=== PATIENT | female | born 1995 | race Caucasian/White ===

== ENCOUNTER 2017-04-28 11:33 | Emergency (ER) | payer OTHER ==
[~2017-04-28] VITALS: Ht 162.6 cm; Wt 58.3 kg
[~2017-04-28 11:33] MED LIST: NAPROSYN500 MG PO; NORCO 5/3251 TABLET PO; SPRINTEC1 EACH PO; ZOFRAN ODT4 MG PO
[2017-04-28 14:29] LABS: ADD MIUA? NO; BILIRUBIN NEGATIVE; BLOOD NEGATIVE; COLOR STRAW ((YELLOW)); GLUCOSE (STRIP) NEGATIVE; KETONES NEGATIVE; LEUKOCYTES NEGATIVE; NITRITE NEGATIVE; PROTEIN (STRIP) NEGATIVE; SPECIFIC GRAVITY 1.008 (1.000-1.030); UROBILINOGEN 0.2 MG/DL (0.2-1.0)
[2017-04-28 14:30] LABS: INTERNAL CONTROL VALID? YES
[2017-04-28] MEDS ORDERED: ZOFRAN ODT4 MG PO (14:48)
[2017-04-28] MEDS ORDERED: PHENERGAN-CODE120 ML PO (14:48)
[2017-04-28 15:16] VITALS: BP 117/84
== END 2017-04-28 15:17 | disposition home or self-care (01) ==
LOC: EME 11:33
PROVIDERS: Nurse Practitioner Family
DX: J32.9 Chronic sinusitis, unspecified (principal); R11.2 Nausea with vomiting, unspecified; J02.9 Acute pharyngitis, unspecified; R05 Cough; H92.09 Otalgia, unspecified ear
CPT/HCPCS: 71020; 81003; 84703; 99281; 99284